=== PATIENT | female | born 1985 | race Caucasian/White ===

== ENCOUNTER 2017-05-23 06:24 | Emergency (ER) | payer OTHER ==
[~2017-05-23] VITALS: Ht 167.6 cm; Wt 90.7 kg
--- NOTE | 2017-05-23 07:22 | ED UPPER/LOWER EXTREMITY COMPL ---
History of Present Illness General Chief Complaint: Lower Extremity Injury Stated Complaint: RT KNEE PAIN S/P EXERCISE YEST PER PT Source: patient Exam Limitations: no limitations Vital Signs & Intake/Output Vital Signs & Intake/Output Vital Signs Date Time Temp Pulse Resp B/P B/P Pulse O2 O2 Flow FiO2 Mean Ox Delivery Rate 05/23 0546 Room Air 05/23 641 97.5 96 18 161/71 97 Room Air Allergies Coded Allergies: No Known Allergies (05/23/17) Reconcile Medications No Known Home Medications Triage Note: PT TO TRIAGE C/O R KNEE PAIN S/P TRIP AND FALL ONTO KNEES WHILE EXERCISING YESTERDAY. PER PT UNABLE TO BEAR FULL WEIGHT ON LEG. TOOK ALEEVE THIS MORNING. PT REFUSED WHEELCHAIR TO ROOM 10, WALKED WITH STEADY BUT SHUFFLING GAIT. AWAITING PROVIDER AMARI. Triage Nurses Notes Reviewed? yes Onset: yest Duration: hour(s):, constant, continues in ED, waxing and waning Timing: single episode today Severity: mild, moderate Pain/Injury Location: Right: Knee. Method of Injury: fall : No Patient currently breastfeeds: No HPI: Patient presents for evaluation of a right knee injury status post fall yesterday. Patient states that she fell onto the right knee while exercising. She denies any associated swelling bruising or distal paresthesias. She states she has been able to walk with a limp. After the incident she discontinue the exercise and started using icepack tried a dose of Aleve. She presents to the emergency department today to "just get it checked". Pain worsens with ambulation. Past History Travel History Traveled to [place] past 21 day No Medical History Any Pertinent Medical History? 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 No Review of Systems Review of Systems Constitutional: Reports: no symptoms. EENTM: Reports: no symptoms. Respiratory: Reports: no symptoms. Cardiovascular: Reports: no symptoms. Gastrointestinal/Abdominal: Reports: no symptoms. Genitourinary: Reports: no symptoms. Musculoskeletal: Reports: see HPI. Skin: Reports: no symptoms. Neurological/Psychological: Reports: no symptoms. Hematologic/Endocrine: Reports: no symptoms. Immunological: Reports: no symptoms. All Other Systems: Reviewed and Negative Physical Exam Physical Exam General Appearance: see below Comments: Gen.: Well-nourished, well-developed, no acute respiratory distress. Head: Normocephalic, atraumatic. Eyes: Normal inspection bilaterally Ears: Normal inspection bilaterally Nose: Normal inspection Throat/mouth : Moist mucosa Neck: Supple, full range of motion, no goiter Heart: Regular rate and rhythm Lungs: Quiet respirations Back: Normal range of motion Extremities: right knee: no apparent effusion, sts,ecchy. stable. nontender over collat ligs. mildly tender over patella. n/v distally. Neurologic: Cranial nerves grossly intact, speech is clear Skin: warm and dry Psychiatric: Calm, cooperative, no apparent delusions or hallucinations Progress Differential Diagnosis: arterial insufficiency, cellulitis, contusion, dislocation, fracture, sprain, tendon injury Plan of Care: see d/c Departure Departure Disposition: HOME OR SELF CARE Condition: Stable Clinical Impression Primary Impression: Contusion of right knee Qualifiers: Encounter type: initial encounter Qualified Code: S80.01XA - Contusion of right knee, initial encounter Referrals: Patient Has No Primary Care Dr (PCP/Family) Additional Instructions: continue ice and elevation for 20 min 3 times per day. aleve 2 tabs twice daily for pain. activity as tolerated. follow up with your doctor in 7 days if not improving. return if any concerns or worsening. Departure Forms: Customer Survey General Discharge Information Prescriptions: Current Visit Scripts No Known Home Medications
[2017-05-23 07:32] VITALS: BP 142/78
== END 2017-05-23 07:34 ==
LOC: ERH 06:24
DX: S80.01XA Contusion of right knee, initial encounter (principal); W19.XXXA Unspecified fall, initial encounter; Y92.9 Unspecified place or not applicable; Y93.9 Activity, unspecified